=== PATIENT | male | born 1955 | race Two or more races ===

== ENCOUNTER 2019-06-13 08:00 | Inpatient (IN) | payer OTHER ==
[~2019-06-13] VITALS: Ht 177.8 cm; Wt 78.9 kg
[2019-06-13] MEDS ORDERED: CAMBIA50 MG PO (09:16)
[2019-06-20] MEDS ORDERED: DICLOFENAC SOD100 MG (09:53)
[2019-06-22] MEDS ORDERED: ELIQUIS2.5 MG PO (14:53)
[2019-06-22] MEDS ORDERED: DUI500 PO (14:53)
[2019-06-22] MEDS ORDERED: PERCOCET 5-3251 EACH PO (14:53)
== END 2019-06-22 18:04 | DRG 470 ==
LOC: O/R 06-20 06:00 → SURG 06-20 06:00 → SURH 06-20 08:00 → O/R 06-20 08:00 → SURH 06-20 12:15 → SURG 06-20 13:15
PROVIDERS: ADMIT Orthopaedic Surgery
PROC: 0QU50JZ Supplement Left Acetabulum with Synthetic Substitute, Open Approach (ICD-10-PCS; 2019-06-20)
PROC: 3E0F7GC Introduction of Other Therapeutic Substance into Respiratory Tract, Via Natural or Artificial Opening (ICD-10-PCS; 2019-06-20)
PROC: 4A19X1Z Monitoring of Respiratory Capacity, External Approach (ICD-10-PCS; 2019-06-20)
PROC: 0SRB0JZ Replacement of Left Hip Joint with Synthetic Substitute, Open Approach (ICD-10-PCS; principal; 2019-06-20 12:15)
DX: M16.12 Unilateral primary osteoarthritis, left hip (principal); D62 Acute posthemorrhagic anemia

== ENCOUNTER 2019-10-04 12:15 | Inpatient (IN) | payer OTHER ==
[~2019-10-04] VITALS: Ht 177.8 cm; Wt 76.2 kg
[~2019-10-04 12:15] MED LIST: CAMBIA50 MG PO; DICLOFENAC SOD100 MG; DUI500 PO; ELIQUIS2.5 MG PO; PERCOCET 5-3251 EACH PO
[2019-10-12] MEDS ORDERED: PERCOCET 5-3251 EACH PO (17:10)
[2019-10-12] MEDS ORDERED: ELIQUIS2.5 MG PO (17:10)
[2019-10-12] MEDS ORDERED: INTEGRA F CAPS1 EACH PO (17:10)
[2019-10-12] MEDS ORDERED: B COMPLEX1 EACH PO (17:10)
== END 2019-10-12 19:13 | DRG 470 ==
LOC: O/R 10-10 06:31 → SURH 10-10 06:31 → SURG 10-10 09:45 → O/R 10-10 12:15 → SURH 10-10 16:33
PROVIDERS: ADMIT Orthopaedic Surgery; ATTEND Orthopaedic Surgery
PROC: 0MBL0ZZ Excision of Right Hip Bursa and Ligament, Open Approach (ICD-10-PCS; 2019-10-10)
PROC: 0QU607Z Supplement Right Upper Femur with Autologous Tissue Substitute, Open Approach (ICD-10-PCS; 2019-10-10)
PROC: 0SR9019 Replacement of Right Hip Joint with Metal Synthetic Substitute, Cemented, Open Approach (ICD-10-PCS; principal; 2019-10-10 09:45)
DX: M16.11 Unilateral primary osteoarthritis, right hip (principal); D62 Acute posthemorrhagic anemia; M89.751 Major osseous defect, right pelvic region and thigh; M70.61 Trochanteric bursitis, right hip; Z96.643 Presence of artificial hip joint, bilateral